=== PATIENT | female | born 1960 | race Caucasian/White ===

== ENCOUNTER 2016-12-04 12:06 | Emergency (ER) | payer OTHER ==
[~2016-12-04] VITALS: Ht 180.3 cm; Wt 92.5 kg
[2016-12-04 12:13] VITALS: BP 130/67
== END 2016-12-04 12:49 | disposition home or self-care (01) ==
LOC: ER 12:08
DX: H10.89 Other conjunctivitis (principal); Z88.1 Allergy status to other antibiotic agents
CPT/HCPCS: 99283; A4606; Z7610